=== PATIENT | male | born 1950 | race Caucasian/White ===

== ENCOUNTER 2024-07-10 09:33 | Inpatient (IN) | payer MEDICARE ==
[2024-07-10] VITALS (13 sets, daily range): BP systolic 105–149; BP diastolic 47–110; PULSE 58–77; RESP 11–18; TEMP 97.5–97.8; O2SAT 94–98
[~2024-07-10] VITALS: Ht 180.3 cm; Wt 58.8 kg
[~2024-07-10 09:33] MED LIST: ASPI-1 PO; ASPI-1264 PO; FINA5TAB11 PO; FLO0.4C PO; HYDR-3565 PO; NAPR220C15 PO; VALA100031 PO; WALKERFR; ZOLP10TA5 PO
[2024-07-10 10:15] LABS: BASOPHILS % (AUTO) 0.2 % (0-1); EOSINOPHILS % (AUTO) 0.1 % (0-6); HEMATOCRIT 47.9 % (42.0-52.0); HEMOGLOBIN 16.3 g/dl (14.0-17.9); LYMPHOCYTES # (AUTO) 0.6 X10'3 (1.1-4.8); LYMPHOCYTES % (AUTO) 5.4 % (21-51); MEAN CORPUSCULAR HEMOGLOBIN 31.6 PG (27.0-31.0); MEAN CORPUSCULAR HGB CONC 34.1 g/dL (33.0-36.5); MEAN CORPUSCULAR VOLUME 92.6 FL (78-98); MEAN PLATELET VOLUME 7.3 FL (7.4-10.4); MONOCYTES % (AUTO) 8.1 % (2-12); NEUTROPHILS # (AUTO) 10.3 X10'3 (1.8-7.7); NEUTROPHILS % (AUTO) 86.2 % (42-75); PLATELET COUNT 240 X10'3 (140-440); RED BLOOD COUNT 5.17 X10'6 (4.70-6.10); RED CELL DISTRIBUTION WIDTH 13.5 % (11.5-14.5); WHITE BLOOD COUNT 11.9 X10'3 (4.5-11.0)
[2024-07-10 10:24] LABS: ALANINE AMINOTRANSFERASE 18 U/L (12-78); ALBUMIN 3.9 G/DL (3.4-5.0); ALBUMIN/GLOBULIN RATIO 1.1 (1.1-1.5); ALKALINE PHOSPHATASE 95 IU/L (46-116); ANION GAP 17 (8-16); ASPARTATE AMINO TRANSFERASE 9 U/L (10-37); BILIRUBIN,TOTAL 1.6 MG/DL (0.1-1.0); BLOOD UREA NITROGEN 42 MG/DL (7-18); BUN/CREATININE RATIO 37.2 (10.0-20.0); CALCIUM 9.2 MG/DL (8.5-10.1); CHLORIDE 100 MMOL/L (99-107); CREATININE 1.13 MG/DL (0.60-1.10); GLUCOSE 109 MG/DL (70-104); LIPASE 38 U/L (16-77); POTASSIUM 3.6 MMOL/L (3.5-5.1); SODIUM 138 MMOL/L (135-145); TOTAL CARBON DIOXIDE 20.7 MMOL/L (24-32); TOTAL PROTEIN 7.5 G/DL (6.4-8.2); eCRCL 48 ML/MIN; eGFR 63 ML/MIN
[2024-07-10] MEDS ORDERED: iohexol 300mg/ml 100ml inj. ONE (10:37)
[2024-07-10] MEDS: ondansetron/PF 4mg/2ml inj IV ONE (11:25)
[2024-07-10] MEDS: normal saline 1000ml 1,000 ML IV ONE (11:25)
[2024-07-10] MEDS: ketorolac trometh 15mg/ml vial 15 MG/ML ML IV ONE (11:26)
[2024-07-10] MEDS: pantoprazole 40 MG vial IV ONE (11:26)
[2024-07-10 12:19] LABS: APTT 26 SECONDS (22-32); INR 1.1 INR
[2024-07-10 12:28] LABS: BILIRUBIN,URINE SMALL (Neg); GLUCOSE, URINE NEGATIVE (Neg); KETONES,URINE >=80 mg/dl (Neg); LEUKOCYTE ESTERASE ,URINE NEGATIVE (Neg); NITRITES, URINE NEGATIVE (Neg); OCCULT BLOOD,URINE NEGATIVE (Neg); PROTEIN,URINE TRACE mg/dl (Neg); UROBILINOGEN,URINE 0.2 E.U/dL (0.2-1.0)
[2024-07-10 12:32] LABS: UA COLLECTION TYPE CLN CATCH MIDSTREAM
[2024-07-10 12:37] LABS: CLARITY,URINE CLEAR (Clear)
[2024-07-10 12:38] LABS: COLOR,URINE DARK YELLOW (Yellow)
[2024-07-10 12:40] LABS: BACTERIA,URINE FEW /HPF (Neg); RBC,URINE 0-2 /HPF (0-2); SQUAMOUS EPITHELIAL CELL,UR FEW /LPF (FEW)
[2024-07-10] MEDS: morphine 4 MG/ML inj SYRINge IV ONE (13:09)
[2024-07-10] MEDS: morphine 2 MG/ML inj. syringe IV ONE (13:09)
[2024-07-10] MEDS ORDERED: HYDROcodone/acetaminophen 5mg/325mg tablet PO PRN (14:30)
[2024-07-10] MEDS ORDERED: magnesium sulf-water 2g/50mL 50 ML IV PRN (14:30)
[2024-07-10] MEDS ORDERED: potassium Cl 20 mEq SR tablet PO PRN (14:30)
[2024-07-10] MEDS ORDERED: ondansetron/PF 4mg/2ml inj IV PRN ×2 (14:30→17:05)
[2024-07-10] MEDS ORDERED: potassium Cl 40MEQ/1/2NS 520ml 520 ML IV PRN (14:30)
[2024-07-10] MEDS ORDERED: magnesium sulf-water 4G/100mL 100 ML IV PRN (14:30)
[2024-07-10] MEDS ORDERED: acetaminophen 325mg tablet PO PRN ×2 (14:30)
[2024-07-10] MEDS ORDERED: HYDROcodone/acetaminophen 10/325mg tab PO PRN (14:30)
[2024-07-10] MEDS ORDERED: magnesium Cl slow-release 64mg tablet PO PRN (14:30)
[2024-07-10] MEDS ORDERED: morphine 2 MG/ML inj. syringe IV PRN ×3 (14:30→17:05)
[2024-07-10] MEDS ORDERED: PANT40TA54 PO (14:33)
[2024-07-10] MEDS ORDERED: METO-395 PO (14:33)
[2024-07-10] MEDS: CefTRIAXone 2gm/D5W 50ml BAG 50 ML IV ONE (15:22)
[2024-07-10] MEDS: normal saline 1000ml 1,000 ML IV SCH (15:22)
[2024-07-10] MEDS ORDERED: LIDOcaine 1% 30ml preserv. free vial ONE (16:46)
[2024-07-10] MEDS ORDERED: BUPIVAcaine 2.5mg/ml inj 50ml vial (contains preservative) ONE (16:46)
[2024-07-10] MEDS ORDERED: HYDROmorphone/PF 0.2 MG/ML SYRINGE IV PRN ×2 (17:05)
[2024-07-10] MEDS ORDERED: labetalol 20mg/4ml (5mg/ml) syringe IV PRN (17:05)
[2024-07-10] MEDS ORDERED: morphine 4 MG/ML inj SYRINge IV PRN (17:05)
[2024-07-10] MEDS ORDERED: fentaNYL/PF 50MCG/1 ML 2ML syringe ONE (17:13)
[2024-07-10] MEDS ORDERED: propofol inj 20 ML IV ONE (17:14)
[2024-07-10] MEDS ORDERED: midazolam 1 mg/ML 2ml injection ONE (17:14)
[2024-07-10] MEDS ORDERED: rocuronium 10mg/ml inj IV ONE (17:14)
[2024-07-10] MEDS ORDERED: LIDOcaine 1% (10mg/ml)w/preservative inj. 20ml MDV ONE (17:30)
[2024-07-10] MEDS ORDERED: BUPIVAcaine/PF 2.5mg/ml (0.25%) 10ml vial ONE (17:31)
[2024-07-10] MEDS ORDERED: sevoflurane 250ml liquid IH ONE (17:56)
[2024-07-10] MEDS ORDERED: ceFAZolin 1000mg inj ONE ×2 (18:13)
[2024-07-10] MEDS ORDERED: dexamethasone sod phosphate 4mg/ml inj. ONE (19:03)
[2024-07-10] MEDS ORDERED: ondansetron/PF 4mg/2ml inj ONE (19:58)
[2024-07-10] MEDS ORDERED: albumin (Human) 5% 250ml 250 ML IV ONE (19:59)
[2024-07-10] MEDS ORDERED: neostigmine methylsulfate 1 MG/ML 10ml vial ONE (20:00)
[2024-07-10] MEDS ORDERED: naloxone 0.4 mg/ml inj IV PRN (20:15)
[2024-07-10] MEDS: HYDROmorph/NS 0.2 mg/ml PCA 100 ML IV SCH (21:00)
[2024-07-10] MEDS ORDERED: zolpidem 5mg tablet PO SCH (21:20)
[2024-07-10] MEDS: heparin, porcine 5000 units/ml vial SQ SCH (22:37)
[2024-07-11] VITALS (7 sets, daily range): BP systolic 96–127; BP diastolic 54–75; PULSE 58–93; RESP 16–18; TEMP 97.5–98.6; O2SAT 93–99
[2024-07-11] MEDS: normal saline 1000ml 1,000 ML IV SCH (00:33)
[2024-07-11] MEDS: ringers solution, lacted 1,000 ML IV SCH (00:34)
[2024-07-11 06:11] LABS: BASOPHILS % (AUTO) 0.1 % (0-1); EOSINOPHILS % (AUTO) 0 % (0-6); HEMATOCRIT 39.8 % (42.0-52.0); HEMOGLOBIN 13.6 g/dl (14.0-17.9); LYMPHOCYTES # (AUTO) 0.5 X10'3 (1.1-4.8); LYMPHOCYTES % (AUTO) 5.2 % (21-51); MEAN CORPUSCULAR HEMOGLOBIN 31.9 PG (27.0-31.0); MEAN CORPUSCULAR HGB CONC 34.1 g/dL (33.0-36.5); MEAN CORPUSCULAR VOLUME 93.6 FL (78-98); MEAN PLATELET VOLUME 7.9 FL (7.4-10.4); MONOCYTES # (AUTO) 0.7 X10'3 (0-0.9); MONOCYTES % (AUTO) 6.6 % (2-12); NEUTROPHILS # (AUTO) 8.8 X10'3 (1.8-7.7); NEUTROPHILS % (AUTO) 88.1 % (42-75); PLATELET COUNT 207 X10'3 (140-440); RED BLOOD COUNT 4.26 X10'6 (4.70-6.10); RED CELL DISTRIBUTION WIDTH 13.5 % (11.5-14.5)
[2024-07-11 06:24] LABS: ALANINE AMINOTRANSFERASE 36 U/L (12-78); ALBUMIN 3.2 G/DL (3.4-5.0); ALBUMIN/GLOBULIN RATIO 1.1 (1.1-1.5); ALKALINE PHOSPHATASE 69 IU/L (46-116); ANION GAP 10 (8-16); ASPARTATE AMINO TRANSFERASE 28 U/L (10-37); BILIRUBIN,TOTAL 0.8 MG/DL (0.1-1.0); BLOOD UREA NITROGEN 36 MG/DL (7-18); CALCIUM 8.1 MG/DL (8.5-10.1); CHLORIDE 104 MMOL/L (99-107); CREATININE 1.06 MG/DL (0.60-1.10); GLUCOSE 131 MG/DL (70-104); POTASSIUM 4.1 MMOL/L (3.5-5.1); SODIUM 140 MMOL/L (135-145); TOTAL CARBON DIOXIDE 25.6 MMOL/L (24-32); eCRCL 51 ML/MIN; eGFR 68 ML/MIN
[2024-07-11] MEDS: tamsulosin 0.4mg capsule PO SCH (08:00)
[2024-07-11] MEDS: metoprolol succinate 25mg (24-HOUR) SR. Tablet PO SCH (08:00)
[2024-07-11] MEDS: lactose-reduced food (Ensure Enlive) - 237ml bottle PO SCH (18:00)
[2024-07-11] MEDS: oxyCODONE/APAP 5-325mg tablet PO ONE (18:18)
[2024-07-11] MEDS: PCA WASTE DOCUMENTATION 1 MG ML MC SCH (18:44)
[2024-07-12] MEDS: oxyCODONE/APAP 5-325mg tablet PO PRN (01:25)
[2024-07-12 06:06] LABS: MEAN CORPUSCULAR VOLUME 92.7 FL (78-98); MEAN PLATELET VOLUME 7.8 FL (7.4-10.4); RED CELL DISTRIBUTION WIDTH 13.6 % (11.5-14.5); WHITE BLOOD COUNT 7.5 X10'3 (4.5-11.0)
[2024-07-12 06:12] LABS: BASOPHILS % (AUTO) 0.6 % (0-1); EOSINOPHILS # (AUTO) 0.1 X10'3 (0-0.9); EOSINOPHILS % (AUTO) 1.9 % (0-6); LYMPHOCYTES # (AUTO) 1.4 X10'3 (1.1-4.8); LYMPHOCYTES % (AUTO) 19.1 % (21-51); MEAN CORPUSCULAR HEMOGLOBIN 31.8 PG (27.0-31.0); MEAN CORPUSCULAR HGB CONC 34.3 g/dL (33.0-36.5); MONOCYTES # (AUTO) 0.9 X10'3 (0-0.9); MONOCYTES % (AUTO) 12.4 % (2-12); PLATELET COUNT 194 X10'3 (140-440); RED BLOOD COUNT 4.11 X10'6 (4.70-6.10)
[2024-07-12 06:45] LABS: ALANINE AMINOTRANSFERASE 20 U/L (12-78); ALBUMIN 2.7 G/DL (3.4-5.0); ALBUMIN/GLOBULIN RATIO 1.1 (1.1-1.5); ALKALINE PHOSPHATASE 59 IU/L (46-116); ANION GAP 8 (8-16); ASPARTATE AMINO TRANSFERASE 16 U/L (10-37); BILIRUBIN,TOTAL 0.9 MG/DL (0.1-1.0); BLOOD UREA NITROGEN 24 MG/DL (7-18); CHLORIDE 105 MMOL/L (99-107); CREATININE 0.89 MG/DL (0.60-1.10); GLUCOSE 83 MG/DL (70-104); POTASSIUM 3.4 MMOL/L (3.5-5.1); SODIUM 139 MMOL/L (135-145); TOTAL CARBON DIOXIDE 26.1 MMOL/L (24-32); TOTAL PROTEIN 5.2 G/DL (6.4-8.2); eCRCL 61 ML/MIN; eGFR 84 ML/MIN
[2024-07-12 07:45] VITALS: RESP 16
[2024-07-12 08:00] VITALS: RESP 14; O2SAT 96
[2024-07-12] MEDS: potassium Cl 20 mEq SR tablet PO PRN (09:40)
[2024-07-12 10:00] VITALS: BP 101/59; PULSE 85; RESP 16; TEMP 97.9; O2SAT 95
== END 2024-07-12 12:00 | disposition home or self-care (01) | DRG 326 ==
LOC: ER 09:34 → UNDOADMIN 14:32 → ED HOLD 14:32 → SUR 3N 21:25
PROVIDERS: ADMIT Internal Medicine; ATTEND Internal Medicine
PROC: 0BUT4JZ Supplement Diaphragm with Synthetic Substitute, Percutaneous Endoscopic Approach (ICD-10-PCS; 2024-07-10)
PROC: 0DQ64ZZ Repair Stomach, Percutaneous Endoscopic Approach (ICD-10-PCS; 2024-07-10)
PROC: BW251ZZ Computerized Tomography (CT Scan) of Chest, Abdomen and Pelvis using Low Osmolar Contrast (ICD-10-PCS; 2024-07-10)
PROC: 8E0W4CZ Robotic Assisted Procedure of Trunk Region, Percutaneous Endoscopic Approach (ICD-10-PCS; principal; 2024-07-10 17:56)
DX: K44.0 Diaphragmatic hernia with obstruction, without gangrene (principal); K56.2 Volvulus; I10 Essential (primary) hypertension; N40.1 Benign prostatic hyperplasia with lower urinary tract symptoms; R33.8 Other retention of urine; G47.00 Insomnia, unspecified; K21.9 Gastro-esophageal reflux disease without esophagitis; Z79.899 Other long term (current) drug therapy
CPT/HCPCS: 36415; 71045; 71260; 74177; 80053; 81001; 83605; 83690; 85025; 85610; 85730; 86885; 86900; 86901; 87040; 87081; 87088; 93005; 99285; A4618; A6212; C1781; G0378; J0690; J0696; J1100; J1171; J1644; J1885; J2003; J2250; J2270; J2405; J2470; J2704; J2710; J3010; J3490; J7030; J7120; P9045; Q9967

== ENCOUNTER 2025-04-07 11:05 | Observation (INO) | payer MEDICARE ==
[2025-04-01 09:34] LABS: MEAN PLATELET VOLUME 7.0 FL (7.4-10.4); PRE OP HEMATOCRIT 42.8 % (42.0-52.0); PRE OP HEMOGLOBIN 14.8 g/dL (14.0-17.9); PRE OP PLATELET COUNT 251 X10'3 (140-440); PRE OP WHITE BLOOD COUNT 5.6 10'3 (4.8-10.8); RED CELL DISTRIBUTION WIDTH 13.7 % (11.5-14.5)
[2025-04-01 09:47] LABS: CREATININE 0.97 MG/DL (0.60-1.10); PRE OP ALT 15 U/L (30-65); PRE OP ANION GAP 6 (8-16); PRE OP AST 14 U/L (10-37); PRE OP BILIRUB, TOTAL 0.6 MG/DL (0.0-1.0); PRE OP GLUCOSE 102 MG/DL (70-104); PRE OP POTASSIUM 3.7 MMOL/L (3.4-5.1); PRE OP SODIUM 139 MMOL/L (135-145); TOTAL CARBON DIOXIDE 29.7 MMOL/L (24-32); eGFR 75 ML/MIN
[2025-04-07] VITALS (19 sets, daily range): BP systolic 96–147; BP diastolic 63–78; PULSE 53–75; RESP 10–17; TEMP 97–97.9; O2SAT 97–100
[~2025-04-07] VITALS: Ht 180.3 cm; Wt 79.0 kg
[2025-04-07] MEDS: ceFAZolin 2gm/dext,iso 50mL 50 ML IV ONE (05:30)
[2025-04-07] MEDS: potassium cl 20mEq in 1/2 NS 1,000 ML IV SCH (07:20)
[2025-04-07] MEDS: metoprolol succinate 25mg (24-HOUR) SR. Tablet PO SCH (08:00)
[2025-04-07] MEDS: DOCUMENT DATE & TIME OF BETA-BLOCKER PO ONE (08:30)
[~2025-04-07 11:05] MED LIST changes: -ASPI-1 PO; -ASPI-1264 PO; -FINA5TAB11 PO; -FLO0.4C PO; -HYDR-3565 PO; +METO-395 PO; -NAPR220C15 PO; +PCA WASTE DOCUMENTATION 1 MG ML MC SCH; +TAMS-55 PO; -VALA100031 PO; -WALKERFR; +bisacodyl 10mg suppository rectal RC PRN; +magnesium hydroxide 30ml (MOM) UD suspension PO PRN; +oxyCODONE IR 5mg (immed. release) tablet PO PRN
[2025-04-07] MEDS ORDERED: ROPIVAcaine 0.5% (5mg/ml) 30ml vial ONE ×2 (12:44→15:27)
[2025-04-07] MEDS ORDERED: mineral oil 10ml sterile, topical TP ONE (12:45)
[2025-04-07] MEDS: ringers solution, lacted 1,000 ML IV SCH ×2 (12:48→13:20)
[2025-04-07] MEDS: VANCOMYCIN/H2O 1.5g/300mL PB 300 ML IV ONE (12:48)
[2025-04-07] MEDS ORDERED: morphine 4 MG/ML inj SYRINge IV PRN (13:20)
[2025-04-07] MEDS ORDERED: ondansetron/PF 4mg/2ml inj IV PRN (13:20)
[2025-04-07] MEDS ORDERED: HYDROmorphone/PF 0.2 MG/ML SYRINGE IV PRN ×2 (13:20)
[2025-04-07] MEDS ORDERED: acetaminophen 1,000mg/100ml IV 100 ML IV PRN (13:20)
[2025-04-07] MEDS ORDERED: labetalol 20mg/4ml (5mg/ml) syringe IV PRN (13:20)
[2025-04-07] MEDS ORDERED: hydrALAZINE 20mg/ml inj. IV PRN (13:20)
[2025-04-07] MEDS ORDERED: MIDAZolam 1mg/ml 10ml vial ONE (13:26)
[2025-04-07] MEDS ORDERED: fentaNYL/PF 50MCG/1 ML 2ML syringe ONE (13:27)
[2025-04-07] MEDS ORDERED: propofol inj 20 ML IV ONE ×2 (13:27→13:32)
[2025-04-07] MEDS ORDERED: ePHEDrine 50MG/ML INJ. ONE (14:44)
[2025-04-07] MEDS: oxyCODONE IR 5mg (immed. release) tablet PO PRN (19:25)
[2025-04-07] MEDS: ondansetron/PF 4mg/2ml inj IV PRN (19:30)
[2025-04-07] MEDS: ceFAZolin/D5W- 1GM premix 50 ML IV SCH (20:23)
[2025-04-07] MEDS: HYDROmorphone/PF 0.2 MG/ML SYRINGE IV PRN (20:24)
[2025-04-07] MEDS: vancomycin/NS 1 GM ADD-VANTAGE 250 ML IV SCH (23:03)
[2025-04-08 02:19] VITALS: BP 101/61; PULSE 72; RESP 15; TEMP 98.4; O2SAT 97
[2025-04-08] MEDS: ceFAZolin/D5W- 1GM premix 50 ML IV SCH (03:35)
[2025-04-08 06:00] VITALS: BP 97/55; PULSE 65; RESP 14; TEMP 98.3; O2SAT 97
[2025-04-08 06:20] LABS: MEAN PLATELET VOLUME 7.4 FL (7.4-10.4); RED CELL DISTRIBUTION WIDTH 13.4 % (11.5-14.5)
[2025-04-08 06:58] LABS: TOTAL CARBON DIOXIDE 25.8 MMOL/L (24-32)
--- NOTE | 2025-04-08 07:01 | DISCHARGE SUMMARY ---
Discharge Summary Ortho CC ~ Discharge Summary Discharge Date: Apr 08, 2025 *Problems/Diagnosis: (1) S/P total knee arthroplasty Status: Acute Admission Diagnosis: osteoarthritis Discharge Diagnosis\Comment: see above Operations\Procedures see above Consultants: none Complications: none Condition on DC: Stable Discharge Summary: Patient underwent Right TKA and was admitted on date of surgery. Surgery went without complication, admission uneventful. Patient meet PT discharge criteria. Patient will be discharged home today. Total Time Spent on D/C: Up to 30 Minutes Medications Home Meds: Home Medications Active Reported Metoprolol Succinate 25 Mg Tab.sr.24h 12.5 Mg PO DAILY Ambien* (Zolpidem Tartrate) 10 Mg Tablet 1 Tab PO HSPRN Flomax* (Tamsulosin HCl) 0.4 Mg Cap.sr.24h 1 Cap PO DAILY Supervising Physician Supervising Physician: Dr. Lemuel Ludwig Problem Qualifiers (1) S/P total knee arthroplasty: Qualified Codes: Z96.651 - Presence of right artificial knee joint KIM URENA Apr 08, 2025 07:01
[2025-04-08 08:00] VITALS: RESP 15; O2SAT 98
--- NOTE | 2025-04-14 16:18 | OPERATIVE REPORT ---
Operative Report Operative Report Diaz Ceja : 1950 [facility] OPERATIVE REPORT [address] [address] Date of service: April 07, 2025 PREOPERATIVE DIAGNOSIS M17.5.16 Primary osteoarthritis of right knee POSTOPERATIVE DIAGNOSIS M17..16 Primary osteoarthritis of right knee Operation Performed 13888 Total Knee Arthro[place]: [place] [address] Computer Assisted Navigation Musculoskeletal - Imageless [id number] Remote therapeutic monitoring; device supply with scheduled recordings every 30 days. Procedure: Computer-assisted, robotically-assisted, right total knee arthroplasty. Surgeon: Dr. Lemuel Ludwig [employer] Officer: Amanda Martinez PA-C Anesthesiologist: Dr. Murrell Anesthesia: Spinal anesthetic Indications: 75-year-old male who has chronic osteoarthritis of the right knee with severe pain and limitation of activities despite extensive non-operative management. This patient has had extensive conservative treatment of knee joint arthritis, including rest, external joint support, anti-inflammatory medications, physical therapy, and corticosteroid injection. Physical therapy has been provided, along with a home exercise program prior to making the decision to proceed with surgical treatment. This therapeutic intervention did not provide any substantial relief of symptoms or improvement in function. The patient has been utilizing a cane, set of crutches, or walker, for more than 3 months prior to deciding to proceed with surgery. These interventions have not provided sufficient relief of pain to allow improvement in function. The patient has utilized non-steroidal anti-inflammatory medications for relief of pain over an extended period of time (more than 2 months), and has not experienced sufficient improvement in symptoms. Despite these treatments, this patient has continued difficulties with pain and limited function. They are unable to walk long distances, do vigorous activities, sit or sleep comfortably. Total knee replacement is the next reasonable step in terms of treatment. Indications for cook's assistant surgeon: A second set of skilled hands with specific orthopedic knowledge of the surgical procedure and orthopedic surgical techniques was necessary to accomplish this operation successfully, and with the least amount of morbidity for the patient. This facilitated operative exposure, manipulation and handling of tissues, placement of any implants, and accomplishment of wound closure. Findings: There was indeed a very severely arthritic knee, with loss of cartilage, exposed bone, and marginal osteophytes. The lateral compartment was particularly bad. A 0 valgus deformity and 0 flexion contracture were measured preoperatively. Post operative alignment was 0 varus, and 5 extension. Complications: None Estimated Blood Loss: 200 cc Generated on 04/08/2025 Page 1 of 3 Diaz Ceja : 1950 [facility] Implants: A Rachell Persona CR total knee system was utilized with a size eight right cemented femoral component, and a size F right cemented tibial smart stem. 14 mm medial congruent right tibial insert was utilized. The EarlyDoc robotically assisted total knee arthroplasty system and computer was utilized. Procedure: The risks, benefits, expected results, and possible complications of the planned procedure had been explained to the patient and informed consent obtained. The patient was taken to the operating room and underwent a spinal anesthetic. The patient was placed in the supine position on the operating table, and the right leg was prepped and draped in the usual fashion. A timeout was taken prior to surgery, confirming patient identification, operative side operative site, planned procedure, administration of pre-operative antibiotics, site marking, and presence of all necessary implants and instruments, x-rays and equipment. A standard anterior, slightly medial approach was performed with a medial parapatellar arthrotomy, and a VMO split. Time was then spent removing excessive synovial tissue and exposing the medial and lateral gutters, as well as moving the anterior sections of the residual menisci. The patella was mobilized to be able to be retracted laterally. This gave exposure of the anterior aspect of the knee. Attention was then directed to the patella. The patella was in excellent condition so we decided not to resurface the patella. Infrared arrays were then placed on the femur and the tibia. Utilizing the EarlyDoc computer system, the hip, knee, and ankle were landmarked in usual fashion. The initial alignment measurements were then taken confirming the above listed deformity. Surgical planning was then carried out on the computer, confirming alignment of components, sizing, and gap balancing. Appropriate soft tissue releases were performed. The robot was then utilized to make the distal femoral cut. The femur was prepared in 4 degrees of flexion and neutral coronal alignment. The distal femoral 4 in 1 block was placed with the robot, and the remaining femoral cuts also performed. The robot was then utilized to cut the proximal tibia in 5 degrees of flexion and neutral coronal alignment. The computer was then utilized to check longitudinal alignment and soft tissue balance, and this confirmed excellent alignment. Next the dynamic balancing block was utilized to check and adjust soft tissue balancing. The trial implant was sized and properly rotated, and the peg drilling performed. Final check of alignment and balancing was then carried out with trials in place, as well as final removal and cleaning up of soft tissue such as meniscal remnants and osteophytes. A tourniquet was inflated to 300 mmHg after exsanguination of the leg with an Esmarch. Cement was then mixed; 2 batches were utilized, mixed together, for the tibia, the femur and the patella. The cut surface of the tibia was thoroughly lavaged with the pulsating lavage and then dried. The tibia was impacted with the mallet, seating it quite nicely in its proper rotational alignment. Excess cement was removed from around the margins. The femoral cuts were cleaned with a pulsating lavage and then dried with the lap sponges, and the femur was impacted into position with a mallet. Excess cement was removed around the margins of the components as the cement cured. Pressure was held on the femoral component and tibia by placing a spacer and bringing the leg to full extension and applying axial and hyperextension force. Upon complete hardening of all cement, the knee was inspected and excess cement removed. We lavaged the knee to wash out any debris and checked to make sure we had no impinging cement. The trial spacer was replaced and overall alignment checked with computer, ensuring we had full extension of the knee, and appropriate medial and lateral soft tissue balance, as well as flexion and extension balance. The tourniquet was deflated and hemostasis obtained with electrocautery. Tourniquet time was 11 minutes. The wound was irrigated thoroughly one more time and then dried with lap sponges. The final tibial spacer was impacted and locked into the locking mechanism without difficulty. I lavaged the knee to wash out any debris. The tibial trial spacer was replaced and overall alignment checked with computer, ensuring we had full extension of the knee, and appropriate medial and lateral soft tissue balance, as well as flexion and extension balance. The wound was irrigated thoroughly one more time and then dried with lap sponges. The final tibial spacer was impacted and locked into the locking mechanism without difficulty. The retinacular incision was closed with #2 Quill suture, and subcutaneous tissue closed with #2-0 Vicryl suture. Skin was closed with 4-0 Monocryl suture. A sterile dressing was applied, and the patient was returned to the recovery room in satisfactory condition. In the recovery area the remote monitoring station was dispensed to the patient and family. Instructions were given for its usage and cabin equipment supervisor once the patient got home. We also confirmed the patient had installed the [employer] mobility software, and we ensured that the patient was enrolled in appropriate software platform from our end. Remote monitoring was initiated at the preoperative appointment and the devices used for remote monitoring implanted and dispensed today. Electronically Signed by: Lemuel Ludwig MD Doctor, Orthopedic Surgery Signed on: 04/08/2025 05:16 AM Generated on 04/08/2025 Page 3 of 3 Problems/Diagnosis: (1) S/P total knee arthroplasty Problem Qualifiers (1) S/P total knee arthroplasty: Qualified Codes: Z96.651 - Presence of right artificial knee joint LEMUEL LUDWIG MD Apr 14, 2025 16:18
--- NOTE | 2025-04-14 16:20 | HISTORY AND PHYSICAL ---
History & Physical - Blank Providers to CC ~ Problems\\Assessment\\Plan *Problems/Diagnosis: (1) S/P total knee arthroplasty History and Physical History and Physical Patient Demographics Patient Name: Diaz Ceja Preferred Language: Icelandic Primary [address]: [address] [place] [id number] Visit Date: April 01, 2025 CC/HPI He presented with right knee pain. The pain is localized right knee. Symptoms are described as aching and stabbing. Other symptoms have included or include: giving way episodes and weak. The symptoms are aggravated by no specific activities (this conditon does not limit the patient's activities). Alleviation occurs with injections. Sleeping problems include none (symptoms do not seem to effect patient's sleep). In addition, he presented for pre-op/surgery consult. The procedure to be performed is: Right total knee arthroplasty with computer assisted navigation. The procedure has been scheduled on 04/07/2025. The severity of symptoms is 4 on a scale of 1-10 (with a 10 being the most severe pain "ever"). Comment: The patient was advised prior to initiation of the interview that KAVYA AI would be utilized to help generate content of the clinic note The patient is a 75-year-old male who presents today for a preoperative visit for right total knee arthroplasty scheduled at [facility] on 04/07/2025. He was last seen on 08/14/2024 for his left total knee arthroplasty. He has expressed interest in outpatient therapy post-surgery and has requested that his medications be prepared for home use. He anticipates experiencing pain post- surgery but believes that increased mobility will alleviate the discomfort. He has been engaging in cycling activities to strengthen his knee. He has also requested a prescription for a stool softener, as he expects to be on pain medication for approximately 3 days post-surgery. He has previously taken oxycodone and Vicodin. PAST SURGICAL HISTORY: Left total knee arthroplasty on 08/14/2024. Review of Systems Constitutional: The patient denied night sweats, weakness, fever, nausea and weight loss. Cardiovascular: The patient denied chest pain/pressure, palpitations, tachycardia, syncope, near-syncope/dizziness, vericose veins, dyspnea, hypertension and paroxysmal nocturnal dyspnea. Respiratory: The patient denied CPAP/BPAP use, cough, persistent cough, dyspnea, cigarette smoking, dyspnea on exertion and wheezing. Gastrointestinal: The patient denied abdominal pain, constipation, diarrhea, nausea, vomiting and gastroesophageal reflux. Musculoskeletal: The patient complained of knee pain and back pain but denied muscle spasms, joint complaint and osteoporosis. Current Medications IBU 800 mg tablet Take 1 Tablet(s) Oral every 8 hours 7 days, 7 days, for a total of 21, start on April 01, 2025, end on April 07, 2025. Prescription associated to M25.561 Pain in right knee and M17.11 Unilateral primary osteoa rthritis, right knee. . Completed Rx. metoprolol succinate ER 25 mg tablet,extended release 24 hr, tablet extended release 24 hr oral, 90 days, for a total of 90, start on May 23, 2022, maintenance drug. oxycodone 5 mg tablet Take 1 Tablet(s) Oral every 6 hours as needed for pain 7 days, 7 days, for a total of 28, start on April 01, 2025, end on April 07, 2025. Prescription associated to M25.561 Pain in right knee. . Completed Rx. pantoprazole 40 mg tablet,delayed release, tablet,delayed release (DR/EC) oral, 30 days, 5 refills, for a total of 30, start on April 19, 2020, maintenance drug. tamsulosin ER 0.4 mg capsule,extended release 24 hr, capsule,extended release 24hr oral, 30 days, for a total of 30, start on May 26, 2014, maintenance drug. Tylenol 8 Hour 650 mg tablet,extended release Take 1 Tablet(s) every 8 hours 10 days, 10 days, for a total of 30, start on April 01, 2025, end on April 10, 2025. Prescription associated to M25.561 Pain in right knee. . Completed Rx. valacyclovir 1 gram tablet, tablet oral, 2 days, for a total of 8, start on July 03, 2014, maintenance drug. zolpidem 10 mg tablet, tablet oral, 30 days, for a total of 30, start on April 16, 2014. Drug Allergy NO KNOWN DRUG ALLERGIES Diagnosis History Z47.1-V54.81 Aftercare following joint replacement surgery, Active 726.12 Bicipital tenosynovitis, Active M17.0-715.16 Bilateral primary osteoarthritis of knee ,bilateral, Active S62.336A-815.04 Displaced fracture of neck of right fifth metacarpal bone, Active W01.0XXA-E885.9 Fall on same level from slipping, tripping and stumbling without subsequent striking against object, initial encounter, Active M75.111-726.13 Incomplete rotator cuff tear or rupture of right shoulder, not specified as traumatic, Active 836.1 Lateral knee meniscus tear (current), Active 836.0 Medial knee meniscus tear (current), Active 728.87 Muscle Weakness, Active 727.61 Nontraumatic-complete rupture of rotator cuff, Active M17.11-715.96 Osteoarthritis of right knee, Active M25.562-719.46 Pain in left knee, Active M25.561-719.46 Pain in right knee, Active M25.511-719.41 Pain in right shoulder, Active Z96.652-V43.65 Presence of left artificial knee joint, Active M19.011-715.11 primary osteoarthritis, Right Shoulder, Active 726.10 Subacromial impingement syndrome ,left, Active M17.11-715.16 Unilateral primary osteoarthritis, right knee, Active M17.12-715.16 Unilateral primary osteoarthritis, left knee, Active 711.91 Uns infective arthritis-shoulder, Active R53.1-780.79 Weakness, Active Surgical History (15844) Total Knee Arthroplasty Performed: 09/26/2016 Notes: left knee shoulder surgery Performed: 04/29/2009 Notes: Right BETTY, ADCR, ARCR, biceps tenodesis Dr. uLdwig. The patient developed a post operative infection and had several I&D procedures after that. He grew out P. acnes from the infection site. shoulder surgery Performed: 04/27/2011 Notes: Left ARCR, biceps tenodesis, BETTY, ADCR. Dr. Ludwig Surgery Performed: 04/10/2013 Notes: diagnostic. Open rotator cuff repair with allograft augmentation. Open distal clavicle resection and A/C joint reconstruction. performed by Dr. Ludwig. Problem Hx Arthritis Onset: 12/28/2011 Status: Active Rotator cuff disease/injury Onset: 12/28/2011 Status: Active Family History Relationship: Father Recorded Date: April 02, 2013 Relationship: Mother Recorded Date: April 02, 2013 Relationship: Paternal Side Recorded Date: April 19, 2011 Notes: cancer.. Relationship: Maternal Side Disease: Heart disease Recorded Date: April 19, 2011 Social History Tobacco history Quit over 10 years ago Alcohol history Currently drinks alcohol 1-2x/ a week. Vitals Musculoskeletal: Right knee: Previous Zilretta injection given in July 2024. Total knee arthro plasty ordered. Right knee exhibits some osteoarthritic enlargement. There is about a 2 to 3 degree flexion contracture. Flexion exceeds 120 degrees. Collaterals are stable. Imaging Right knee x-rays show near complete obliteration of medial and lateral clear space, mild medial subluxation of femur on tibia, osteophytes at the margins of the tibia and the femur, posterior and anterior femoral osteophytes, superior and inferior patellar osteophytes, and appropriate alignment of the patella. Advanced tricompartmental osteoarthritic changes in the knee are observed. Prescription Orders IBU 800 mg tablet Take 1 Tablet(s) Oral every 8 hours 7 days, 7 days, for a total of 21, start on April 01, 2025, end on April 07, 2025. Prescription associated to M25.561 Pain in right knee and M17.11 Unilateral primary osteoarthritis, right knee. . Completed Rx. oxycodone 5 mg tablet Take 1 Tablet(s) Oral every 6 hours as needed for pain 7 days, 7 days, for a total of 28, start on April 01, 2025, end on April 07, 2025. Prescription associated to M25.561 Pain in right knee. . Completed Rx. Tylenol 8 Hour 650 mg tablet,extended release Take 1 Tablet(s) every 8 hours 10 days, 10 days, for a total of 30, start on April 01, 2025, end on April 10, 2025. Prescription associated to M25.561 Pain in right knee. . Completed Rx. Primary Pharmacy [id number] Address: [address] [place] [address] Pharmacy Phone: [phone] Services Ordered pt Physical therapy order Order faxed to: [facility] Body part: right knee Please begin therapy: 2 weeks after surgery Date of surgery: 04/07/2025 Therapy type: Physical therapy evaluation and treatment Diagnosis: R TKA Duration of therapy: 2-3 days per week for 6 weeks Modalities: modalities as needed Modalities and treatments: modalities as needed Vani pre-op Vani pre-op Order faxed to: [facility] Pre op Clinic DVT prophylaxis: SCD device Patient Status: 1 overnight stay, observation status Desired nobles or location: Orthopedics Surgical consent to read: Right knee: total knee arthroplasty Date of admission: 04/07/2025 IV: Lactated Ringers and 100 ccs per hour Delong catheter: No Pre-operative medications: Ancef 2 gms IV regional sales trainer to the OR, Vancomycin 1gm IV, infuse over 60 min, begin 1 hr prior to surgery and tranexamic acid, 650 mg tablet, take 3 tablets pre-op (1,950 mg total) Surgical site preparation: chlorhexidine scrub prep in PASS prior to surgery and chlorhexidine shower night before surgery pth PT Home Care post surgical Service requested: physical therapy and Home nursing visits Therapy frequency/duration: 3 times per week for 2 weeks Nursing frequency/duration: Day after Discharge, then 2 visits for 2 weeks, with 2 prn visits if needed Specific wound protocol: Leave outer dressings in place for 3 days then remove, may change outer dressing as needed for bleeding, Leave Sylke wound cove ring in place and may shower at 4 days, with Sylke dressing in place Order faxed to: [facility] Entry Urgency: Routine Starting day of service: day after discharge from ASC or hospital Modalities: modalities as needed Recent surgical procedure:: right total knee arthroplasty Therapeutic goals: ambulation/gait training, increased range of motion, increased strength and pain relief Plan1. Preoperative evaluation for right total knee arthroplasty: Stable. - Comprehensive discussion regarding knee implants: press fit or bone ingrowth and cemented. Choice of implant to be determined intraoperatively based on bone health and medical history. - ZappRx fatmata enrollment to guide postoperative exercises three times daily, provide preoperative information, and offer a stepwise approach to physical therapy. - Emphasis on maintaining a high level of activity post-surgery. - Home physical therapy arranged for the first two weeks post-surgery with a physical therapist visiting 2 to 3 days per week and a nurse visiting twice weekly. - Outpatient physical therapy to commence two weeks post-surgery at [facility]. - Prescriptions for Tylenol 650 mg, ibuprofen 800 mg, and oxycodone 5 mg sent to the pharmacy. Two tablets of oxycodone can be taken if needed for postoperative pain. - Prescription for a stool softener provided. - Incision to be made slightly more lateral to decrease nerve sensitivity as requested. Follow-up - Next appointment scheduled for 04/07/2025 at [facility]. Amanda BLANCO Problem Qualifiers (1) S/P total knee arthroplasty: Laterality: right Qualified Codes: Z96.651 - Presence of right artificial knee joint PERCY LUDWIG MD Apr 14, 2025 16:20
== END 2025-04-08 12:40 | disposition home health service (06) ==
LOC: PAS 11:05 → ORTHO 4S 17:38
PROVIDERS: ADMIT Orthopaedic Surgery; ATTEND Orthopaedic Surgery
DX: M17.11 Unilateral primary osteoarthritis, right knee (principal); M25.561 Pain in right knee; I10 Essential (primary) hypertension; N40.0 Benign prostatic hyperplasia without lower urinary tract symptoms; Z87.891 Personal history of nicotine dependence; Z79.899 Other long term (current) drug therapy; Z98.890 Other specified postprocedural states
CPT/HCPCS: 27447; 80051; 80053; 82948; 96365; 96366; 96367; 96375; 97161; A4215; A4618; A7000; C1713; C1776; G0378; J1171; J3375; J3480; J3490; J7120; 36415; 85025; 87081; 96376; 97110; 97116; 97530; A6449; J0690; J2250; J2405; J2704; J2795; J3010; J3373